=== PATIENT | male | born 1995 | race Caucasian/White ===

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

== ENCOUNTER 2017-05-23 12:22 | Emergency (ER) | payer OTHER ==
[2017-05-23 13:57] VITALS: BP 139/88
--- NOTE | 2017-05-23 14:00 | UC ---
Throat Pain/Nasal Lamine HPI - HPI Summary HPI Summary: Pt presents with sinus pain/pressure/congestion, b/l ear pain, sore throat, and dry cough for the last 4 days. He has been taking mucinex and tylenol with mild relief. Denies fevers, chills, SOB, chest pain, abdominal pain, n/v/d/c, or body aches. - History of Current Complaint Chief Complaint: UCRespiratory Stated Complaint: COUGH,CONGESTED Time Seen by Provider: 05/23/17 13:51 Hx Obtained From: Patient Onset/Duration: Gradual Onset Severity: Moderate Pain Intensity: 5 Pain Scale Used: 0-10 Numeric Cough: Nonproductive - Allergies/Home Medications Allergies/Adverse Reactions: Allergies Allergy/AdvReac Type Severity Reaction Status Date / Time No Known Allergies Allergy Verified 05/23/17 13:56 Home Medications: Home Medications Pseudoephedrine-Guaifenesin [Mucinex D 60-600 mg] 1 tab PO 05/23/17 [History] PMH/Surg Hx/FS Hx/Imm Hx Previously Healthy: Yes - Surgical History Surgical History: Yes Surgery Procedure, Year, and Place: T&A - Family History Known Family History: Positive: Hypertension - father, Diabetes - father - Social History Occupation: Student Lives: Dormitory/Roommates Alcohol Use: Occasionally Substance Use Type: Marijuana Substance Use Comment - Amount & Last Used: weekly Smoking Status (MU): Never Smoked Tobacco Review of Systems Constitutional: Negative Skin: Negative Eyes: Negative ENT: Sore Throat, Ear Ache, Nasal Discharge, Sinus Congestion, Sinus Pain/ Tenderness Respiratory: Cough Cardiovascular: Negative Neurovascular: Negative Musculoskeletal: Negative Neurological: Negative Psychological: Negative All Other Systems Reviewed And Are Negative: Yes Physical Exam Triage Information Reviewed: Yes Appearance: Well-Appearing, No Pain Distress, Well-Nourished Vital Signs: Initial Vital Signs Temp 98.5 F 05/23/17 13:50 Pulse 92 05/23/17 13:50 Resp 18 05/23/17 13:50 BP 139/88 05/23/17 13:50 Pulse Ox 98 05/23/17 13:50 Vital Signs Reviewed: Yes Eyes: Positive: Conjunctiva Clear. Negative: Conjunctiva Inflamed, Discharge ENT: Positive: Hearing grossly normal, Pharynx normal, Nasal congestion, Nasal drainage, TM bulging - LEft ear, TM red - Left ear, Sinus tenderness, Uvula midline. Negative: Pharyngeal erythema, Tonsillar swelling, Tonsillar exudate, Hoarse voice Neck: Positive: Supple, Nontender, No Lymphadenopathy Respiratory: Positive: Chest non-tender, Lungs clear, Normal breath sounds, No respiratory distress, No accessory muscle use Cardiovascular: Positive: RRR, No Murmur, Pulses Normal Neurological: Positive: Alert Psychological: Positive: Age Appropriate Behavior Skin: Negative: rashes Throat Pain/Nasal Course/Dx - Course Course Of Treatment: Sinusitis. Left otitis media - Differential Dx/Diagnosis Provider Diagnoses: Left otitis media. Sinusitis Discharge - Discharge Plan Condition: Stable Disposition: HOME Prescriptions: Amoxicillin PO (*) [Amoxicillin 500 MG CAP*] 500 mg PO Q12H #20 cap Patient Education Materials: Sinusitis (ED) Referrals: No Primary Care Phys,NOPCP [Primary Care Provider] - Additional Instructions: If you develop a fever, shortness of breath, chest pain, new or worsening symptoms - please call your PCP or go to the ED. Your blood pressure was high at todays visit. Please see your primary provider within 4 weeks for recheck and re-evaluation.
== END 2017-05-23 14:10 | disposition home or self-care (01) ==
LOC: UCEAST 12:22
DX: H66.92 Otitis media, unspecified, left ear (principal); J32.9 Chronic sinusitis, unspecified; F12.90 Cannabis use, unspecified, uncomplicated
CPT/HCPCS: 99212; G0463

== ENCOUNTER 2018-01-21 18:45 | Emergency (ER) | payer OTHER ==
[2018-01-21] MEDS ORDERED: NS 0.9% 1000 ML* 2,000 ML IV ONE (20:37)
[2018-01-21] MEDS ORDERED: Ibuprofen TAB* 600 MG ONE (20:37)
[2018-01-21] MEDS ORDERED: Pantoprazole IV* 40 MG IV ONE (20:37)
[2018-01-21] MEDS ORDERED: Ondansetron INJ* 2 MG/ML VIAL IV ONE (20:37)
--- NOTE | 2018-01-21 20:37 | ED ---
Abdominal Pain/Male - HPI Summary HPI Summary: This patient is a 22 year old M presenting to [facility] accompanied by his friend with a chief complaint of N/V/D since 01/18/18. Pt was referred from [facility]. 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 He endorses epigastric abd pain, intermittent fevers, decreased appetite , and sore throat (possibly secondary to emesis). He endorses 1x emetic episode this AM just after waking, and episodes of emesis usually within an hour of eating (he notes he hasnt eaten today for fear of vomiting). He also endorses at least 5x diarrheal episodes today. He denies Rx. Finally, he notes a sore on the inside of his lip as well. - History of Current Complaint Chief Complaint: EDPageuseaVomitDiarrh Stated Complaint: VOMITING/DIARRHEA/FEVER Time Seen by Provider: 01/21/18 20:29 Hx Obtained From: Patient Onset/Duration: Gradual Onset, Lasting Days, Still Present Timing: Constant Severity Initially: Mild Severity Currently: Mild Pain Intensity: 3 Pain Scale Used: 0-10 Numeric Location: Epigastric Radiates: No Aggravating Factor(s): Food Alleviating Factor(s): Nothing Associated Signs And Symptoms: Positive: Fever - intermittant, Decreased Appetite, Nausea, Vomiting, Diarrhea, Other - sore throat - Allergies/Home Medications Allergies/Adverse Reactions: Allergies Allergy/AdvReac Type Severity Reaction Status Date / Time No Known Allergies Allergy Verified 05/23/17 13:56 PMH/Surg Hx/FS Hx/Imm Hx Endocrine/Hematology History: Denies: Hx Sickle Cell Disease Respiratory History: Reports: Hx Asthma - as a GI History: Denies: Hx Ileostomy History: Denies: Hx Dialysis Musculoskeletal History: Denies: Hx Osteoporosis Sensory History: Denies: Hx Legally Blind, Hx Deafness Opthamlomology History: Denies: Hx Legally Blind EENT History: Denies: Hx Deafness Neurological History: Denies: Hx Dementia Psychiatric History: Denies: Hx Schizophrenia - Surgical History Surgery Procedure, Year, and Place: T&A Infectious Disease History: No Infectious Disease History: Denies: Traveled Outside the [place] in Last 30 Days - Family History Known Family History: Positive: Hypertension - father, Diabetes - father, Other - [place] - Social History Occupation: Student Lives: Dormitory/Roommates - fraternity Alcohol Use: Occasionally Substance Use Type: Reports: Marijuana Substance Use Comment - Amount & Last Used: weekly Smoking Status (MU): Never Smoked Tobacco Review of Systems Positive: Fever Positive: Sore Throat Positive: Abdominal Pain, Vomiting, Diarrhea, Nausea, Other - decreased appetite Positive: no symptoms reported All Other Systems Reviewed And Are Negative: Yes Physical Exam - Summary Physical Exam Summary: Appearance: Well appearing, no pain distress Skin: warm, dry, reflects adequate perfusion Head/face: normal Eyes: EOMI, CECILIA ENT: dry mucous membranes Neck: supple, non-tender Respiratory: CTA, breath sounds present Cardiovascular: RRR, pulses symmetrical Abdomen: tend umblicus Bowel: present Musculoskeletal: normal, strength/ROM intact Neuro: normal, sensory motor intact, A&Ox3 Triage Information Reviewed: Yes Vital Signs On Initial Exam: Initial Vitals Temp Pulse Resp BP Pulse Ox 98.3 F 90 16 150/94 99 01/21/18 19:07 01/21/18 19:07 01/21/18 19:07 01/21/18 19:07 01/21/18 19:07 Vital Signs Reviewed: Yes Diagnostics - Vital Signs Vital Signs Temp Pulse Resp BP Pulse Ox 01/21/18 19:07 98.3 F 90 16 150/94 99 - Laboratory Result Diagrams: 01/21/18 20:50 01/21/18 20:50 Lab Statement: Any lab studies that have been ordered have been reviewed, and results considered in the medical decision making process. Abdominal Pain Fem Course/Dx - Course Course Of Treatment: A 22-year-old M presents to the ED with a CC of N/V/D for 3 days. (+) mild epigastric pain, sore throat, intermittent fevers, decreased appetite, inability to keep food down. Emesis within 1 hour of eating and after waking without fail (1x episode today after waking, has not eaten today). At least 5x diarrheal episodes today. Pt lives in a fraternity. In the ED course, pt was given nl saline, zofran, and protonix. - Diagnoses Differential Diagnosis/HQI/PQRI: Appendicitis, Diverticulitis, Pancreatitis, Peptic Ulcer Disease Provider Diagnoses: Abdominal pain Discharge - Sign-Out/Discharge Documenting (check all that apply): Sign-Out Patient Signing out patient TO: Zeynep Trevizo - CT A/P - Discharge Plan Referrals: No Primary Care Phys,NOPCP [Primary Care Provider] - - Attestation Statements Document Initiated by Ganesh: Yes Documenting Scribe: Ethan Palencia Provider For Whom Ganesh is Documenting (Include Credential): Dr. Jules Hong MD Scribe Attestation: IEthan scribed for Dr. Jules Hong MD on 01/21/18 at 2136. Scribe Documentation Reviewed: Yes Provider Attestation: The documentation as recorded by the Ethan zapien accurately reflects the service I personally performed and the decisions made by me, Dr. Jules Hong MD
[2018-01-21 21:00] LABS: ABS Basophils 0.1 10^3/ul (0-0.2); ABS Eosinophils 0.1 10^3/ul (0-0.6); ABS Lymphocytes 2.4 10^3/ul (1.0-4.8); ABS Monocytes 0.9 10^3/ul (0-0.8); ABS Neutrophils 8.5 10^3/ul (1.5-7.7); ABS Nucleated RBC 0 10^3/ul; Eosinophil % 0.8 % (0-6); Hematocrit 45 % (42-52); Hemoglobin 15.5 g/dl (14.0-18.0); Lymphocyte % 19.8 % (25-47); Mean Corpuscular HGB Conc 34 g/dl (31-36); Mean Corpuscular Hemoglobin 28 pg (27-31); Mean Corpuscular Volume 81 fL (80-94); Mean Platelet Volume 8.2 um3 (7.4-10.4); Nucleated Red Blood Cells % 0.2; Platelet Count 213 10^3/ul (150-450); Red Blood Count 5.58 10^6/ul (4.00-5.40); Red Cell Distribution Width 14 % (10.5-15)
[2018-01-21 21:09] LABS: INR 1.11 (0.77-1.02)
[2018-01-21 21:16] LABS: EGFR Non-African American 103.6 (>60)
[2018-01-21] MEDS ORDERED: Iohexol 300* (CONTRAST) 10 ML SDV IV ONE (21:24)
--- NOTE | 2018-01-21 21:52 | ED ---
Progress - Progress Note Progress Note: This patient is a 22 year old M presenting to [facility] accompanied by his friend with a chief complaint of N/V/D since 01/18/18. Patient was signed out to Dr. Trevizo from Dr. Hong during a shift change, pending a CT abdomen/pelvis. Course/Dx - Course Course Of Treatment: This patient is a 22 year old M presenting to [facility] accompanied by his friend with a chief complaint of N/V/D since 01/18/18. [facility]. 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 He endorses epigastric abd pain, intermittent fevers, decreased appetite, and sore throat (possibly secondary to emesis). He endorses 1x emetic episode this AM just after waking, and episodes of emesis usually within an hour of eating (he notes he hasnt eaten today for fear of vomiting). He also endorses at least 5x diarrheal episodes today. He denies Rx. Finally, he notes a sore on the inside of his lip as well. Patient was signed out from Dr. Hong to Dr. Trevizo during a shift change. CT Abd/Pelvis showed: No acute findings. The appendix is visualized and is normal in appearance. No. hydronephrosis or nephrolithiasis. Colonic diverticulosis without evidence of. acute diverticulitis. Patient will be d/c home with a dx of abdominal pain. - Diagnoses Provider Diagnoses: Abdominal pain Discharge - Sign-Out/Discharge Documenting (check all that apply): Patient Departure - D/C, Receiving Sign-Out Receiving patient FROM: Jules Hong - Pending CT abdomen/pelvis - Discharge Plan Condition: Stable Disposition: HOME Patient Education Materials: Abdominal Pain (ED) Forms: *School Release Referrals: No Primary Care Phys,NOPCP [Primary Care Provider] - (Follow up with [facility] in 1-2 days.) Additional Instructions: RETURN TO THE EMERGENCY DEPARTMENT FOR CHANGING OR WORSENING SYMPTOMS. FOLLOW UP WITH PCP IN 1-2 DAYS. - Attestation Statements Document Initiated by Scribe: Yes Documenting Scribe: Timo Hu Provider For Whom Scribe is Documenting (Include Credential): Ana Trevizo MD Scribe Attestation: Timo Ace scribed for Ana Trevizo MD on 01/21/18 at 2319. Diagnostics - Vital Signs Vital Signs Temp Pulse Resp BP Pulse Ox 01/21/18 19:07 98.3 F 90 16 150/94 99 - Laboratory Lab Results: Lab Results 01/21/18 01/21/18 01/21/18 Range/Units 20:50 20:50 20:50 WBC 12.0 H (3.5-10.8) 10^3/ul RBC 5.58 H (4.00-5.40) 10^6/ul Hgb 15.5 (14.0-18.0) g/dl Hct 45 (42-52) % MCV 81 (80-94) fL MCH 28 (27-31) pg MCHC 34 (31-36) g/dl RDW 14 (10.5-15) % Plt Count 213 (150-450) 10^3/ul MPV 8.2 (7.4-10.4) um3 Neut % (Auto) 71.2 (38-83) % Lymph % (Auto) 19.8 L (25-47) % Frio % (Auto) 7.4 H (0-7) % Eos % (Auto) 0.8 (0-6) % Baso % (Auto) 0.8 (0-2) % Absolute Neuts (auto) 8.5 H (1.5-7.7) 10^3/ul Absolute Lymphs (auto) 2.4 (1.0-4.8) 10^3/ul Absolute Monos (auto) 0.9 H (0-0.8) 10^3/ul Absolute Eos (auto) 0.1 (0-0.6) 10^3/ul Absolute Basos (auto) 0.1 (0-0.2) 10^3/ul Absolute Nucleated RBC 0 10^3/ul Nucleated RBC % 0.2 INR (Anticoag Therapy) 1.11 H (0.77-1.02) APTT 30.4 (26.0-36.3) seconds Sodium 141 (135-145) mmol/L Potassium 4.0 (3.5-5.0) mmol/L Chloride 105 (101-111) mmol/L Carbon Dioxide 28 (22-32) mmol/L Anion Gap 8 (2-11) mmol/L BUN 15 (6-24) mg/dL Creatinine 0.93 (0.67-1.17) mg/dL Est GFR ( Amer) 125.3 (>60) Est GFR (Non-Af Amer) 103.6 (>60) BUN/Creatinine Ratio 16.1 (8-20) Glucose 91 (70-100) mg/dL Lactic Acid (0.5-2.0) mmol/L Calcium 9.8 (8.6-10.3) mg/dL Total Bilirubin 1.10 H (0.2-1.0) mg/dL AST 25 (13-39) U/L ALT 43 (7-52) U/L Alkaline Phosphatase 69 (34-104) U/L Total Protein 7.7 (6.4-8.9) g/dL Albumin 4.7 (3.2-5.2) g/dL Globulin 3.0 (2-4) g/dL Albumin/Globulin Ratio 1.6 (1-3) Lipase 15 (11.0-82.0) U/L Urine Color Urine Appearance Urine pH (5-9) Ur Specific [place] (1.010-1.030) Urine Protein (Negative) Urine Ketones (Negative) Urine Blood (Negative) Urine Nitrate (Negative) Urine Bilirubin (Negative) Urine Urobilinogen (Negative) Ur Leukocyte Esterase (Negative) Urine Glucose (Negative) Group A Strep Rapid (Negative) 01/21/18 01/21/18 01/21/18 Range/Units 20:50 22:08 22:47 WBC (3.5-10.8) 10^3/ul RBC (4.00-5.40) 10^6/ul Hgb (14.0-18.0) g/dl Hct (42-52) % MCV (80-94) fL MCH (27-31) pg MCHC (31-36) g/dl RDW (10.5-15) % Plt Count (150-450) 10^3/ul MPV (7.4-10.4) um3 Neut % (Auto) (38-83) % Lymph % (Auto) (25-47) % Frio % (Auto) (0-7) % Eos % (Auto) (0-6) % Baso % (Auto) (0-2) % Absolute Neuts (auto) (1.5-7.7) 10^3/ul Absolute Lymphs (auto) (1.0-4.8) 10^3/ul Absolute Monos (auto) (0-0.8) 10^3/ul Absolute Eos (auto) (0-0.6) 10^3/ul Absolute Basos (auto) (0-0.2) 10^3/ul Absolute Nucleated RBC 10^3/ul Nucleated RBC % INR (Anticoag Therapy) (0.77-1.02) APTT (26.0-36.3) seconds Sodium (135-145) mmol/L Potassium (3.5-5.0) mmol/L Chloride (101-111) mmol/L Carbon Dioxide (22-32) mmol/L Anion Gap (2-11) mmol/L BUN (6-24) mg/dL Creatinine (0.67-1.17) mg/dL Est GFR ( Amer) (>60) Est GFR (Non-Af Amer) (>60) BUN/Creatinine Ratio (8-20) Glucose (70-100) mg/dL Lactic Acid 1.0 (0.5-2.0) mmol/L Calcium (8.6-10.3) mg/dL Total Bilirubin (0.2-1.0) mg/dL AST (13-39) U/L ALT (7-52) U/L Alkaline Phosphatase (34-104) U/L Total Protein (6.4-8.9) g/dL Albumin (3.2-5.2) g/dL Globulin (2-4) g/dL Albumin/Globulin Ratio (1-3) Lipase (11.0-82.0) U/L Urine Color Yellow Urine Appearance Clear Urine pH 5.0 (5-9) Ur Specific [place] > 1.060 H (1.010-1.030) Urine Protein Negative (Negative) Urine Ketones Trace A (Negative) Urine Blood Negative (Negative) Urine Nitrate Negative (Negative) Urine Bilirubin Negative (Negative) Urine Urobilinogen Negative (Negative) Ur Leukocyte Esterase Negative (Negative) Urine Glucose Negative (Negative) Group A Strep Rapid Negative (Negative) Result Diagrams: 01/21/18 20:50 01/21/18 20:50 Lab Statement: Any lab studies that have been ordered have been reviewed, and results considered in the medical decision making process. - CT Abdomen/Pelvis CT CT Interpretation Completed By: Radiologist - 22:26. No acute findings. The appendix is visualized and is normal in appearance. No hydronephrosis or nephrolithiasis. Colonic diverticulosis without evidence of acute diverticulitis. ED Physician has reviewed this imaging report.
--- NOTE | 2018-01-21 22:27 | RAD ---
EXAM: CT Abdomen and Pelvis With Intravenous Contrast CLINICAL HISTORY: 22 years old, male; Pain; Abdominal pain; Localized; Right lower quadrant (rlq); Additional info: Abd pain R/O appendicitis TECHNIQUE: Axial computed tomography images of the abdomen and pelvis with intravenous contrast. All CT scans at this facility use at least one of these dose optimization techniques: automated exposure control; mA and/or kV adjustment per patient size (includes targeted exams where dose is matched to clinical indication); or iterative reconstruction. Coronal and sagittal reformatted images were created and reviewed. CONTRAST: 150 mL of OMNIPAQUE 300 administered intravenously. COMPARISON: No relevant prior studies available. FINDINGS: Lung bases: Unremarkable. No mass. No consolidation. ABDOMEN: Liver: The liver is of normal size and appearance. No focal hepatic lesion. Gallbladder and bile ducts: The gallbladder is normal in appearance. Noncalcified gallstone. No ductal dilation. Pancreas: The pancreas is normal in appearance. No dilatation the pancreatic duct. Spleen: The spleen is of normal size and appearance. Adrenals: The adrenal glands are normal. Kidneys and ureters: The kidneys are of normal size and appearance. No hydronephrosis or nephrolithiasis. Stomach and bowel: No evidence of bowel obstruction. Diverticula changes involving the colon. No evidence of acute diverticulitis. PELVIS: Appendix: The appendix is visualized and is normal in appearance. Bladder: Unremarkable. No mass. Reproductive: Unremarkable as visualized. ABDOMEN and PELVIS: Intraperitoneal space: Unremarkable. No free air. No significant fluid collection. Bones/joints: No acute fracture. No dislocation. Soft tissues: Unremarkable. Vasculature: No evidence of abdominal aortic aneurysm. Retroaortic left renal vein. Lymph nodes: Unremarkable. No enlarged lymph nodes. IMPRESSION: No acute findings. The appendix is visualized and is normal in appearance. No hydronephrosis or nephrolithiasis. Colonic diverticulosis without evidence of acute diverticulitis.
[2018-01-21 22:54] LABS: Urine Appearance Clear; Urine Blood Negative (Negative); Urine Color Yellow; Urine Ketones Trace (Negative); Urine Protein Negative (Negative); Urine Specific Gravity > 1.060 (1.010-1.030); Urine Urobilinogen Negative (Negative)
[2018-01-21 23:26] VITALS: BP 109/74
== END 2018-01-21 23:24 | disposition home or self-care (01) ==
LOC: ED 18:45
DX: R10.9 Unspecified abdominal pain (principal); R11.2 Nausea with vomiting, unspecified
CPT/HCPCS: 36415; 74177; 80053; 81003; 83605; 83690; 85025; 85610; 85730; 87651; 96374; 96375; 99282; A9270-GY; J2405; Q9967

== ENCOUNTER 2018-05-21 11:18 | Emergency (ER) | payer OTHER ==
--- NOTE | 2018-05-21 13:58 | ED ---
Abdominal Pain/Male - HPI Summary HPI Summary: Pt is a 23 y/o M presenting to the ED with a chief complaint of vomiting after midnight last night. Pt was fine yesterday, felt nauseous for around 2 hours, then threw up blood. Pt had no pain at the time, but woke up this morning with pain on the L side of his abd and vomited again which was streaked with blood. Pt has not had a bowel movement today. The sharp abd pain is intermittent but the aching is constant and diffuse. He had a US 2wks ago at his PCP in [place] which was normal, and a negative h. pylori test. - History of Current Complaint Chief Complaint: EDNauseaVomitDiarrh Stated Complaint: VOMITING BLOOD/ABD PAIN Time Seen by Provider: 05/21/18 13:49 Hx Obtained From: Patient Onset/Duration: Sudden Onset, Lasting Hours, Still Present Timing: Constant, Lasting Hours Severity Initially: Mild Severity Currently: Mild Pain Intensity: 3 Pain Scale Used: 0-10 Numeric Location: Diffuse Character: Sharp Aggravating Factor(s): Nothing Alleviating Factor(s): Nothing Associated Signs And Symptoms: Positive: Nausea, Vomiting, Other - hematemesis. Negative: Diarrhea - Allergies/Home Medications Allergies/Adverse Reactions: Allergies Allergy/AdvReac Type Severity Reaction Status Date / Time No Known Allergies Allergy Verified 05/23/17 13:56 Home Medications: Home Medications Ergocalciferol CAP* [Drisdol CAP*] 50,000 unit PO WEEKLY 05/21/18 [History Confirmed 05/21/18] lamoTRIgine TAB(*) [Lamictal TAB(*)] 100 mg PO DAILY 05/21/18 [History Confirmed 05/21/18] PMH/Surg Hx/FS Hx/Imm Hx Previously Healthy: Yes Endocrine/Hematology History: Denies: Hx Diabetes, Hx Sickle Cell Disease Cardiovascular History: Denies: Hx Hypertension Respiratory History: Reports: Hx Asthma - as a infant GI History: Denies: Hx Ileostomy History: Denies: Hx Dialysis, Hx Renal Disease Musculoskeletal History: Denies: Hx Osteoporosis Sensory History: Denies: Hx Legally Blind, Hx Deafness Opthamlomology History: Denies: Hx Legally Blind Neurological History: Denies: Hx Dementia Psychiatric History: Denies: Hx Schizophrenia - Surgical History Surgery Procedure, Year, and Place: T&A Infectious Disease History: No Infectious Disease History: Denies: Traveled Outside the [place] in Last 30 Days - Family History Known Family History: Positive: Hypertension - father, Diabetes - father, Other - [place] - Social History Alcohol Use: Occasionally Substance Use Type: Reports: None Substance Use Comment - Amount & Last Used: weekly Smoking Status (MU): Never Smoked Tobacco Review of Systems Negative: Fever Positive: Abdominal Pain, Vomiting, Nausea. Negative: Diarrhea All Other Systems Reviewed And Are Negative: Yes Physical Exam - Summary Physical Exam Summary: Appearance: The patient is obese but in no acute distress and in no acute pain. Skin: The skin is warm and dry and skin color reflects adequate perfusion HEENT: The head is normocephalic and atraumatic. The pupils are equal and reactive. The conjunctivae are clear and without drainage. Nares are patent and without drainage. Mouth reveals moist mucous membranes and the throat is without erythema and exudate. The external ears are intact. The ear canals are patent and without drainage. The tympanic membranes are intact. Neck: The neck is supple with full range of motion and non-tender. There are no carotid bruits. There is no neck vein distension. Respiratory: Chest is non-tender. Lungs are clear to auscultation and breath sounds are symmetrical and equal. Cardiovascular: Heart is regular rate and rhythm. There is no murmur or rub auscultated. There is no peripheral edema and pulses are symmetrical and equal. Abdomen: The abdomen is soft and non-tender. There are normal bowel sounds heard in all four quadrants and there is no organomegaly palpated. Triage Information Reviewed: Yes Vital Signs On Initial Exam: Initial Vitals Temp Pulse Resp BP Pulse Ox 97.1 F 89 18 126/97 96 05/21/18 11:25 05/21/18 11:25 05/21/18 11:25 05/21/18 11:25 05/21/18 11:25 Vital Signs Reviewed: Yes Diagnostics - Vital Signs Vital Signs Temp Pulse Resp BP Pulse Ox 05/21/18 13:39 82 140/87 96 05/21/18 13:38 74 97 05/21/18 11:25 97.1 F 89 18 126/97 96 - Laboratory Result Diagrams: 05/21/18 13:48 05/21/18 13:48 Lab Statement: Any lab studies that have been ordered have been reviewed, and results considered in the medical decision making process. Abdominal Pain Fem Course/Dx - Course Course Of Treatment: Mr. Reddy arrived today with the complaint that he vomited bright red blood yesterday after about 2 hours of nausea. He's been nauseated today and vomited once but there was only some streaking of blood. He was nontoxic in appearance here with stable vital signs. IV was established and labs drawn. He was given some normal saline and Protonix and his labs returned within normal limits. During the period of observation here he had no further bleeding and I recommended follow-up with his PCP. He may need to see GI. - Diagnoses Provider Diagnoses: Hematemesis Discharge - Sign-Out/Discharge Documenting (check all that apply): Patient Departure - Discharge Plan Condition: Stable Disposition: HOME Prescriptions: Omeprazole CAP (NF) [Prilosec CAP* 20 MG] 20 mg PO BID #20 cap. Referrals: [facility] - [facility] [[employer], APPLICATION, OTHER] - Additional Instructions: Please return to the emergency department with any new or worsening symptoms. Follow up with [facility] or your primary care provider within the next 2-3 days. - Billing Disposition and Condition Condition: STABLE Disposition: Home - Attestation Statements Document Initiated by Scribe: Yes Documenting Scribe: Shaneka Rosenberg Provider For Whom Ganesh is Documenting (Include Credential): Syed Mallory MD. Scribe Attestation: Shaneka Ace, scribed for Syed Mallory MD. on 05/21/18 at 1745. Scribe Documentation Reviewed: Yes Provider Attestation: The documentation as recorded by the Shaneka zapien accurately reflects the service I personally performed and the decisions made by me, Syed Mallory MD. Status of Scribe Document: Viewed
[2018-05-21 14:00] LABS: ABS Basophils 0.1 10^3/ul (0-0.2); ABS Eosinophils 0.1 10^3/ul (0-0.6); ABS Lymphocytes 1.9 10^3/ul (1.0-4.8); ABS Monocytes 0.7 10^3/ul (0-0.8); ABS Neutrophils 5.6 10^3/ul (1.5-7.7); ABS Nucleated RBC 0 10^3/ul; Eosinophil % 0.8 %; Hematocrit 48 % (42-52); Hemoglobin 16.4 g/dl (14.0-18.0); Mean Corpuscular HGB Conc 35 g/dl (31-36); Mean Corpuscular Hemoglobin 28 pg (27-31); Mean Corpuscular Volume 80 fL (80-94); Mean Platelet Volume 8.3 fL (7.4-10.4); Nucleated Red Blood Cells % 0.1; Platelet Count 202 10^3/ul (150-450); Red Blood Count 5.93 10^6/ul (4.00-5.40); Red Cell Distribution Width 14 % (10.5-15); White Blood Count 8.4 10^3/ul (3.5-10.8)
[2018-05-21] MEDS ORDERED: Pantoprazole IV* 40 MG IV ONE (14:02)
[2018-05-21 14:18] LABS: Albumin 4.4 g/dL (3.2-5.2); Albumin/Globulin Ratio 1.3 (1-3); BUN/Creatinine Ratio 13.9 (8-20); C Reactive Protein 2.33 mg/L (<8.01); EGFR African American 149.8 (>60); EGFR Non-African American 123.8 (>60); Globulin 3.4 g/dL (2-4); Total Bilirubin 1.1 mg/dL (0.2-1.0); Total Protein 7.8 g/dL (6.4-8.9)
[2018-05-21 16:20] LABS: Urine Appearance Clear; Urine Bilirubin Negative (Negative); Urine Blood Negative (Negative); Urine Color Yellow; Urine Glucose Negative (Negative); Urine Ketones Negative (Negative); Urine Nitrite Negative (Negative); Urine Protein Negative (Negative); Urine Specific Gravity 1.025 (1.010-1.030); Urine Urobilinogen Negative (Negative)
[2018-05-21 16:45] VITALS: BP 139/85
== END 2018-05-21 16:45 | disposition home or self-care (01) ==
LOC: ED 11:18
DX: K92.0 Hematemesis (principal); R11.2 Nausea with vomiting, unspecified; R10.9 Unspecified abdominal pain
CPT/HCPCS: 36415; 80053; 81003; 83605; 83690; 85025; 86140; 96374; 99283